=== PATIENT | female | born 1960 | race Caucasian/White ===

== ENCOUNTER 2025-01-18 16:47 | Emergency (ER) | payer MEDICARE, SELFPAY ==
--- OUTSIDE RECORDS SUMMARY | 2025-01-12 13:40 | XMS_ITS | Encounter Summary ---
Author Organization [facility] Address [address] [place] [address] Care Team Providers Care Project Admin Name Role Phone Esther June UTILIZATION SPECIALIST Unavailable Reason for Visit * ReasonCommentsThyroid Nodule Encounter Details DateTypeDepartmentCare Team (Latest Contact Info)Jxhxcrutpis04/22/2025 1:40 PM EDTOffice Visit [facility] [address] [facility] [address] [place] [address] Vicenta Real MD [address] [facility] [address] [place] [address] Nontoxic multinodular goiter (Primary Dx) Social History Tobacco UseTypesPacks/DayYears UsedDateSmoking Tobacco: FormerCigarettes Smokeless Tobacco: Never Tobacco Cessation:Counseling Given: Not Answered Alcohol UseStandard Drinks/WeekCommentsNever0 (1 standard drink = 0.6 oz pure alcohol)caffeine 2-3 cups/dayCommentsUnknownSex and Gender Information ValueDate RecordedSex Assigned at BirthNot on fileLegal QlzCqjhuv93/15/2023 6:36 PM EDTGender IdentityNot on fileSexual OrientationNot on filedocumented as of this encounter Last Filed Vital Signs Vital SignReadingTime TakenCommentsBlood Dfvhvizg601/7610 1:36 PM EDT Utnmm045901/12/2025 1:36 PM EDTTemperature--Respiratory Rate--Oxygen Saturation-- Inhaled Oxygen Concentration--Zzmqwb386 kg (309 lb)01/12/2025 1:36 PM EDTHeight 147.3 cm (4' 10 )01/12/2025 1:36 PM EDTBody Mass Index64.5801/12/2025 1:36 PM EDTdocumented in this encounter Progress Notes * Vicenta Real MD - 01/12/2025 1:40 PM EDT Subjective Patient ID: Maria G Gracia is a 64 y.o. female who presents for Thyroid Nodule Remote h/o RT thyroid lobectomy for benign dz. Recently had chest CT that showed left thyroid nodules. [place] bsequent US shows a left 33mm TR3 nodule and a 39mm TR3 nodule. TFTs normal Review of Systems All other systems reviewed and are negative. Family History[1] Active Ambulatory Problems Diagnosis Date Noted Abdominal hernia 05/09/2023 Abdominal pain in female 07/08/2024 Acute respiratory distress syndrome (HCC) 05/09/2023 Anxiety disorder 06/30/2022 Bilateral tinnitus 01/10/2025 BMI 50.0-59.9, adult ([facility]) 07/08/2024 Change in skin mole 07/08/2024 Chronic eczematous otitis externa of both ears 01/10/[address] ([facility]) 07/08/2024 Contact dermatitis 07/08/2024 Current smoker 05/09/2023 Delirium in remission 07/08/2024 Depressive disorder 05/09/2023 Fistula of intestine 07/08/2024 Fluid level behind tympanic membrane of both ears 07/08/2024 Gout 05/09/2023 Hirsutism 07/08/2024 Hypercholesterolemia 07/02/2022 Hypothyroidism 07/02/2022 Hypertension 01/10/2025 Incisional hernia, without obstruction or gangrene 04/21/2023 Infection of index finger 07/08/2024 Leg swelling 07/08/2024 Migraine headache 05/09/2023 Mixed conductive and sensorineural hearing loss of right ear with restricted hearing of left ear 01/10/2025 Moderate episode of recurrent major depressive disorder (HCC) 01/10/2025 Morbid obesity (CMS-HCC) 07/08/2024 Nausea 07/08/2024 Paroxysmal atrial fibrillation (HCC) 01/10/2025 Schizophrenia (HCC) 01/10/2025 Endometriosis 07/08/2024 Small bowel obstruction (HCC) 07/08/2024 Tooth infection 07/08/2024 Type 2 diabetes mellitus (HCC) 07/08/2024 Vitamin D deficiency 05/09/2023 Resolved Ambulatory Problems Diagnosis Date Noted No Resolved Ambulatory Problems Past Medical History: Diagnosis Date Anxiety and depression Bowel obstruction (HCC) Generalized muscle weakness Gouty arthropathy Headache History of being hospitalized 2014 Obesity BRITNEY (obstructive sleep apnea) Panic attack Polycythemia TIA (transient ischemic attack) Surgical History[2] Allergies[3] Medications Ordered Prior to Encounter[4] Objective Last Recorded Vitals Vitals: 01/12/25 1336 BP: 143/76 Pulse: 70 ENT Physical Exam Constitutional Appearance: patient appears well-developed and well-groomed, obesity noted, Head and Face Appearance: head appears normal and face appears atraumatic; Ear Ear Canals: right ear canal normal; left ear canal normal; Tympanic Membranes: right tympanic membrane normal; left tympanic membrane normal; Nose External Nose: nares patent bilaterally; external nose normal; Internal Nose: septum normal; Oral Cavity/Oropharynx Tongue: normal; Oral mucosa: normal; Hard palate: normal; Soft palate: normal; Tonsils: normal; Neck Neck: neck normal; neck palpation normal; Thyroid: thyroid normal; Respiratory Inspection: breathing unlabored; normal breathing rate; Auscultation: breath sounds are clear; Cardiovascular Inspection: extremities are warm and well perfused; no peripheral edema present; Auscultation: regular rate and rhythm; Assessment/Plan Diagnoses and all orders for this visit: Nontoxic multinodular goiter Pt has 2 fairly large thyroid nodules. I will check an US-guided FNA to assess whether can be followed with periodic US or if removal is needed. [1] Family History Problem Relation Name Age of Onset Heart disease Mother Hypertension Father Heart disease Father Diabetes Maternal Grandmother Diabetes Maternal Grandfather Heart disease Paternal Grandmother Stroke Paternal Grandmother Heart disease Paternal Grandfather [2] Past Surgical History: Procedure Laterality Date ADENOIDECTOMY SECTION, LOW TRANSVERSE x2x CHOLECYSTECTOMY 2014 open choley COLOSTOMY 04/2015 d/t bowel obstruction w gangrene HYSTERECTOMY THYROID LOBECTOMY TONSILLECTOMY TUBAL LIGATION [3] Allergies Allergen Reactions Ciprofloxacin Other Reaction(s): Not available Ciprofloxacin Hcl Lymecycline Unknown Other Reaction(s): Unknown [place] Oil Unknown Penicillin G Sodium Other Reaction(s): Unknown Sulfa Antibiotics [4] Current Outpatient Medications on File Prior to Visit Medication Sig Dispense Refill allopurinol (Zyloprim) 300 MG tablet 1 (one) time each day at the same time ALPRAZolam (Niravam) 0.25 MG disintegrating tablet amitriptyline (Elavil) 10 MG tablet Take 10 mg by mouth at bedtime aspirin 325 MG tablet 1 (one) time each day at the same time atorvastatin (Lipitor) 10 MG tablet 1 (one) time each day at the same time cholecalciferol (Vitamin D-3) 125 MCG (5000 UT) capsule citalopram (CeleXA) 40 MG tablet Take 40 mg by mouth in the morning. escitalopram (Lexapro) 10 MG tablet Take 10 mg by mouth Fluocinolone Acetonide Scalp (fluocinolone) 0.01 % oil Apply to inner ear, up to twice a day for flares, 30 day supply 118.28 mL 11 fluocinonide (Lidex) 0.05 % external solution Apply to affected areas on the scalp, up to twice a day when flared, 30 day supply 60 mL 11 indomethacin (Indocin) 25 MG capsule every 8 (eight) hours metFORMIN (Glucophage) 500 MG tablet Take 1 tablet by mouth Daily ondansetron ODT (Zofran-ODT) 4 MG disintegrating tablet pantoprazole (ProtoNix) 40 MG EC tablet 1 (one) time each day at the same time simvastatin (Zocor) 20 MG tablet Take 20 mg by mouth at bedtime Xanax 0.25 MG tablet Take 0.25 mg by mouth [DISCONTINUED] albuterol (ProAir RespiClick) 90 mcg/act breath-activated inhaler Inhale 2 puffs [DISCONTINUED] albuterol HFA (Ventolin HFA) 90 mcg/act inhaler every 4 (four) hours [DISCONTINUED] dicyclomine (Bentyl) 20 MG tablet No current facility-administered medications on file prior to visit. documented in this encounter Plan of Treatment DateTypeDepartmentCare Team (Latest Contact Info)Xxkmgqllxrq12/03/2025 1:30 PM ESTOffice Visit [facility] [address] [facility] [address] [place] [address] Vicenta Real MD [address] [facility] [address] [place] [address] documented as of this encounter Visit Diagnoses Diagnosis Nontoxic multinodular goiter- Primary documented in this encounter Care Teams Team MemberRelationshipSpecialtyStart DateEnd Date Esther June NP [address] [place] [address] Referring PhysicianFamily Fxlyytrw39/22/25documented as of this encounter
[2025-01-18 16:48] VITALS: BP 168/88; PULSE 76; TEMP 37.1; O2SAT 98; BMI 64.6
--- NOTE | 2025-01-18 17:27 | ECG_ITS ---
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 Measurements Intervals [place] Rate: 67 P: 68 IA: 188 QRS: 112 QRSD: 86 T: 34 QT: 340 QTc: 356 Interpretive Statements [address]-T wave changes 8305 Short QTc interval 9150 abnormal ECG Compared to ECG 09/08/2018 17:12:46 No significant changes Electronically Signed On 01-18-2025 19:00:21 EDT by TABBY SUMMERS M.D.
[2025-01-18 17:31] LABS: Hematocrit 45.5 % (36.0-48.0); Hemoglobin 15.2 g/dL (12.0-16.0); Immature Granulocytes Abs Auto 0.05 10^3/uL (0.00-0.03); Immature Granulocytes Pct Auto 0.4 % (0.0-0.5); Lymphocytes Absolute Auto 4.9 10^3/uL (1.2-3.8); Mean Corpuscular HGB Conc 33.4 g/dL (29.9-35.2); Mean Corpuscular Hemoglobin 29.8 pg (26.7-34.0); Mean Corpuscular Volume 89.2 fL (81.0-99.0); Platelet Count 217 10^3/uL (150-450); Red Blood Count 5.10 10^6/uL (4.20-5.40); White Blood Count 13.2 10^3/uL (4.0-11.0)
--- OUTSIDE RECORDS SUMMARY | 2025-01-18 17:38 | XMS_ITS | Clinical Summary ---
Author Organization [facility] Address [address] [place] [address] Care Team Providers Care Grave Cleaner Name Role Phone Unavailable Primary Care Provider Unavailabl e Allergies Active AllergyReactionsCriticalityNoted DateCommentsCiprofloxacinOther: See Tblvvzvc28/09/2016 Other Reaction(s): Not available WsaayatjxdxEgtsfnv73/15/2013[place] XhupcJccrzpf32/06/2016[place] OilUnknown 07/28/2015PenicillinsHives,Other: See Fgstrqim94/15/2013 Other Reaction(s): Unknown Sulfa (Sulfonamide Antibiotics)Tdnwcjt1607/27/2015 Medications * This document contains information received from the source organization and may not represent a complete record from that organization. MedicationSigDispense QuantityRefillsLast FilledStart DateEnd DateStatus ALPRAZolam (XANAX) 0.25 mg tablet Take 0.25 mg by mouth.07/05/2022ctive escitalopram oxalate (LEXAPRO) 10 mg tablet Take 10 mg by mouth.10/14/2022ctive ondansetron (ZOFRAN) 4 mg tablet Take 4 mg by mouth three times a day as needed.Active simvastatin (ZOCOR) 20 mg tablet Take 20 mg by mouth.Active aspirin 81 mg cap Take 1 tablet by mouth once daily.Active Active Problems ProblemNoted DateDiagnosed DateAbdominal glibso42cute respiratory distress /urrent kyufxc2405/09/2023 05/09/2023 Overview (05/09/2023): Added secondary to documentation in Social History. Comment on above: Added secondary to documentation in Social History. Depressive mlrotyzg28/8844Flkg00Migraine headache Vitamin D htybxzgdgd97Incisional hernia, without obstruction or gffbollr43/29/5829Fctnlcrlkvudetmwlrpn88/11/2023 05/09/20236803Hhopsmpdqammgf98nxiety Social History Tobacco UseTypesPacks/DayYears UsedDateSmoking Tobacco: Every DayCigarettes Passive Smoke Exposure: NeverSmokeless Tobacco: Never Tobacco Cessation:Ready to Q uit: Yes; Counseling Given: Yes Alcohol UseStandard Drinks/WeekCommentsYes0 (1 standard drink = 0.6 oz pure alcohol)1x/weekPHQ-2AnswerDate RecordedPHQ-2 eufib880rea Deprivation IndexAnswerDate RecordedNational Score (1-100), lower number is lower risk61 04/21/2023State Score (1-10), lower number is lower brjr26804/21/2023ata from: https://www.neighborhoodatlas.medicine.[facility].edu/. Last address used for sdnbojuzjo[address]04/21/2023CommentsNoSex and Gender Information ValueDate RecordedSex Assigned at BirthNot on fileLegal JoxNkiawb62/04/2023 9:56 AM ESTGender IdentityNot on fileSexual OrientationNot on file Last Filed Vital Signs Vital SignReadingTime TakenCommentsBlood Yobqyqmv700/7003 11:51 AM EDT Wlddp909706/09/2023 11:51 AM GNKCmxqjxmeumo30.6 ??C (97.8 ??F)06/09/2023 11:51 AM EDTRespiratory Rate--Oxygen Saturation--Inhaled Oxygen Concentration--Weight 143.2 kg (315 lb 11.2 oz)06/09/2023 11:51 AM IGHMtfaqp441.1 cm (4' 11.5 ) 06/09/2023 11:51 AM EDTBody Mass Index62.703 11:51 AM EDT Plan of Treatment Health MaintenanceDue DateLast DoneCommentsAnnual PCP Team Chronic Disease Visit 01/29/1980HIV Abacxxwqu50/07/1980Hepatitis C Jtndnmcbf59/07/1980DTaP,Tdap,Td Vaccine (1 - Tdap)1981Pneumococcal Vaccine: 50+ (1 of 2 - PCV)1981 Cervical Cancer Srirlonah85/07/1983Mammogram Etucsgjvk63/07/2002CT Colonography 2007Cologuard (FIT-DNA)01/28/20071566Gxlhdumeuhx54/07/2007Colorectal Cancer Nbwimqeyp67/07/2007Diabetes Nksywhxgv34/07/2007Fecal Occult Blood2007Lipid Uahcijsjs10/07/3635Eihpccvnzyzxv58/07/2007Shingrix Vaccine (1 of 2)01/29/2012 Medicare Annual Wellness Visit02/21/2017RSV Vaccine (1 - Risk 60-74 years 1-dose series)2Covid-19 Vaccine (1 - 2024- season)2024Influenza Vaccine (#1)2024 Insurance
--- OUTSIDE RECORDS SUMMARY | 2025-01-18 17:38 | XMS_ITS | Clinical Summary ---
Author Organization [facility] Address [id number] [address] [place] [address] Care Team Providers Care Globe Changer Name Role Phone Cami De Guzman MD Primary Care Provider [phone] Allergies Active AllergyReactionsCriticalityNoted DateCommentsCiprofloxacin Hcl07/27/2015 [place] Juice07/28/20155538Ykrhibdjhu91/05/2016Sulfa (Sulfonamide Antibiotics) 07/27/2015 Medications MedicationSigDispense QuantityRefillsLast FilledStart DateEnd DateStatus simvastatin (ZOCOR) 20 mg tablet Take 20 mg by mouth nightly.Active aspirin 325 mg tablet Take 325 mg by mouth daily.Active citalopram (CeleXA) 40 mg tablet Take 40 mg by mouth daily.Active ondansetron (ZOFRAN) 4 mg tablet Take 4 mg by mouth every 8 (eight) hours as needed for nausea or vomiting.Active ALPRAZolam (XANAX) 0.25 mg tablet Take 0.25 mg by mouth 2 (two) times a day as needed for anxiety.Active albuterol sulfate 90 mcg/actuation aerosol powdr breath activated Inhale 2 puffs Every 6 (six) hours while awake.Active amitriptyline (ELAVIL) 10 mg tablet Take 10 mg by mouth nightly. TAKE 2 HOURS BEFORE BEDActive oxyCODONE-acetaminophen (LYNOX) 5-300 mg per tablet Take 1 tablet by mouth every 8 (eight) hours as needed for moderate pain - pain scale 4-6.Active Social History Tobacco UseTypesPacks/DayYears UsedDateSmoking Tobacco: Never AssessedChildcare AnswerDate PrkxzckrDzilnqwnlOhvrclv13/12/2019EmploymentAnswerDate Recorded UpkqidfhseBrvqola38/12/2019Purpose - LifeAnswerDate RecordedPurpose and direction in klkgSeyhqyv74/11/2021CommentsUnknownSex and Gender InformationValueDate RecordedSex Assigned at BirthNot on fileLegal SexFemale 07/25/2015 7:49 PM EDTGender IdentityNot on fileSexual OrientationNot on file Last Filed Vital Signs Vital SignReadingTime TakenCommentsBlood Gdapzqrx494/7607 9:00 AM EDT Nbiyv6048 3:00 PM BBXImpkskuqqwy08.7 ??C (98 ??F)09/22/2015 9:00 AM EDT Respiratory Ddhh5019 9:00 AM EDTOxygen Saturation--Inhaled Oxygen Concentration--Ftcsnm067.4 kg (294 lb)07/27/2015 2:00 PM UUMVqjotm121.5 cm (5' 2 )07/27/2015 2:00 PM EDTBody Mass Index53.7705 2:00 PM EDT Plan of Treatment Not on file Medical Devices Not on file Insurance * Guarantor: Rico Gracia TypeRelation to PatientDate of BirthPhone Billing AddressPersonal/MmoeyuUaxn1960 [address] [address] Care Teams Team MemberRelationshipSpecialtyStart DateEnd Cami De Guzman MD [facility]07/25/15
--- OUTSIDE RECORDS SUMMARY | 2025-01-18 17:38 | XMS_ITS | Clinical Summary ---
Author Organization [facility] Address [address] [facility] [place] [address] Care Team Providers Care Convolute Tube Winder Name Role Phone Lily White MD Unavailable [phone] Source Comments The following information is NOT included in Care Everywhere downloads:Psychiatric notes, ECG results, Cardiac Rehab notes, Pulmonary Function notes, data from SmartForms (includes but not limited toPregnancy data,audiograms, eye exams, pre-surgical evaluation notes, well-child exam data).[facility] Allergies Active AllergyReactionsCriticalityNoted WahcIlzudclqMqsisthqsbbbx36/09/2016 Other Reaction(s): Not available, Other: See Comments Other Reaction(s): Not available Upltezlkuti69/15/2013 Other Reaction(s): Unknown [place] Oil07/28/2015 Other Reaction(s): Unknown, Unknown, Unknown YxnbvqfzmjpHdehq35/17/2025Sulfa Ksthmehsnfc76/05/2016 Other Reaction(s): Unknown Medications MedicationSigDispense QuantityRefillsLast FilledStart DateEnd DateStatus amitriptyline (ELAVIL) 10 MG tablet Take 10 mg by mouth at bedtime.Active aspirin 81 MG tablet Take 81 mg by mouth daily.Active atorvastatin (LIPITOR) 10 MG tablet Take 10 mg by mouth daily.Active citalopram (CeleXA) 10 MG tablet Take 20 mg by mouth daily.Active simvastatin (ZOCOR) 20 MG tablet Take 20 mg by mouth every evening.Active nicotine (NICODERM CQ) 21 mg/24HR patch Place 1 Patch on the skin every 24 hours. 28 Patch 07/09/2024 10:39 AM EDT5Active Albuterol Sulfate 108 (90 Base) MCG/ACT AEPB Inhale 2 Puffs by mouth.Active allopurinol (ZYLOPRIM) 300 MG tablet 1 (one) time each day at the same timeActive ALPRAZolam (NIRAVAM) 0.25 MG dissolvable tablet Take 1 tablet twice a day by oral route.Active Cholecalciferol 125 MCG (5000 UT) CAPS as directed OrallyActive clindamycin (CLEOCIN) 300 MG capsule Take 300 mg by mouth.02/06/2024ctive escitalopram (LEXAPRO) 10 MG tablet Take 10 mg by mouth.tive Fluocinolone Acetonide Body 0.01 % OIL Apply to inner ear, up to twice a day for flares, 30 day gdclgw5703/28/2023ctive fluocinonide (LIDEX) 0.05 % external solution Apply to affected areas on the scalp, up to twice a day when flared, 30 day ypuduu9803/28/2023ctive furosemide (Lasix) 20 MG tablet Take 20 mg by mouth.02/06/2024ctive Hyoscyamine Sulfate 0.[address] 1 tablet every 4 hours by sublingual route.Active pantoprazole (PROTONIX) 40 MG tablet 1 (one) time each day at the same timeActive ondansetron (ZOFRAN-ODT) 4 MG disintegrating tablet Take 1 tablet every 8 hours by oral route.Active metroNIDAZOLE (FLAGYL) 500 MG tablet Take 1 tablet every 8 hours by oral route.Active metFORMIN (GLUCOPHAGE) 500 MG tablet Take 1 tablet every day by oral route.Active indomethacin (INDOCIN) 25 MG capsule every 8 hours.Active Active Problems ProblemNoted DateDiagnosed DateAbdominal pain in jmzqxa1707/08/2024MI 50.0-59.9, adult07/08/2024hange in skin mole07/08/2024olostomy in place07/08/2024ontact /17/3021Dfdnxvuhm59/17/2025Delirium in alyshgvnr17/17/2025 Qpbslmavooyuk89/17/2025Sleep gectgani50/17/2025Fistula of gkgnaylqg09/17/2025 Fluid level behind tympanic membrane of both ears07/08/20243107Iwuudknyc58/17/2025 Infection of index xkdlkm6907/08/2024Leg /17/2025Moderate episode of recurrent major depressive aubocvbo87/17/2025 Overview (07/08/2024): added per 02/20/2023 query response. Morbid ywyfkdz4807/08/20248265Icknyp71/17/2025Tooth iygushgyx12/17/2025Type 2 diabetes hyexdldx12/17/2025 Overview (07/09/2024): Pt claims she does no have. Only required medication temporarily after surgery Small bowel vyrzzbhzbpg84/17/2025ute respiratory distress fyjswmes21/16/2024 Current qmaemz7005/09/2023 Overview (07/08/2024): Added secondary to documentation in Social History. Comment on above: Added secondary to documentation in Social History. Depressive /16/6179Emae20/16/2024Migraine fdvdpncu37/16/2024Vitamin D hvyxpuidwt59/16/2024Incisional hernia, without obstruction or gtumugtn64/29/2024 Qubpheochhefooovzxem36/11/0696Axjiahjracscth22/11/2023nxiety zegqufzo65/09/2023 Social History Tobacco UseTypesPacks/DayYears UsedDateSmoking Tobacco: FormerCigarettes Tobacco Cessation:Counseling Given: Not Answered Humiliation, Afraid, Rape, and Kick questionnaireAnswerDate RecordedFear of Current or Ex-PartnerNot on file07/08/2024Within the last year, have you been humiliated or emotionally abused in other ways by your partner or ex-partner?No 07/08/2024Physically AbusedNot on file07/08/2024Sexually AbusedNot on file 07/08/2024CommentsUnknownSex and Gender InformationValueDate RecordedSex Assigned at BirthNot on fileLegal MwlBrryzn60/16/2025 5:22 PM EDTGender Identity Not on fileSexual OrientationNot on file Last Filed Vital Signs Vital SignReadingTime TakenCommentsBlood Cthxoxvk446/7104 3:08 PM EDT Hsxxg2363 3:08 PM CVEHlxguvtxmjg07.7 ??C (98 ??F)07/09/2024 3:00 PM EDT Respiratory Ebdf889107/09/2024 3:00 PM EDTOxygen Kfugkohxqh69%07/09/2024 3:00 PM EDTInhaled Oxygen Concentration--Ebvkmk234.8 kg (306 lb)07/19/2024 3:02 PM EDT Jugurc791.3 cm (4' 10 )07/19/2024 3:02 PM EDTBody Mass Index63.95007/19/2024 3:02 PM EDT Plan of Treatment Health MaintenanceDue DateLast AshvLwydjcrxFhgzfsazxqg1960Foot Exam 1960TSH103/30/1961Vitamin B12 1960Eye Exam1962Hemoglobin A1C 1960Urine Protein (microalbumin)1962HIV Test1977Hepatitis C Qupbvaig79/07/1980Tdap Wyqlesj3001/29/1980Hepatitis A (HAV) Vaccine (optional start 19+ years)1981Pneumococcal Vaccine(s) (50+ yrs) (1 of 2 - PCV) 1981Pap Smear01/28/19837024Vatarodrdrv68/07/2002CRC Qrjvzfvuz13/07/2007 Cologuard (Stool DNA)2007FIT2007Shingles (RZV) Vaccine (1 of 2) 01/29/2012Hepatitis B (HBV) Vaccine (optional start 60+ years)2022SV vaccine (adult) (1 - Risk 60-74 years 1-dose series)2022Lipid Profile 404/Welcome to Medicare Visit (G0402)5COVID-19 Vaccine (1 - 2024- season)2024Influenza Vaccine (#1)5Basic Metabolic Panel6007/09/2024, 07/08/2024 Procedures Procedure NamePriorityDate/TimeAssociated DiagnosisCommentsBASIC METABOLIC PANEL Wujfion5707/09/2024 4:51 AM EDT from Last 3 Months or Most Recently Relevant to Health Maintenance Results * (ABNORMAL) BASIC METABOLIC PANEL (07/09/2024 4:51 AM EDT)ComponentValueRef RangeTest MethodAnalysis TimePerformed AtPathologist YtbogqtkiSdralel1116 - 109 mg/dL07/09/2024 5:52 AM [facility] EXBNWNGABISrdckt136409 - 145 mmol/L07/09/2024 5:52 AM [facility] PATH[facility] LABORATORYPotassium3.93.5 - 5.0 mmol/L07/09/2024 5:52 AM [facility] PATH[facility] LABORATORYCarbon Eqxaqir3309 - 31 mmol/L07/09/2024 5:52 AM [facility] EUXBDZYROEQsxkbayy62670 - 107 mmol/L 07/09/2024 5:52 AM [facility] PATH[facility] LABORATORYBlood Urea Rbjbgnuw005 - 25 mg/dL07/09/2024 5:52 AM [facility] LABORATORYCreatinine0.50(L)0.60 - 1.20 mg/dL07/09/2024 5:52 AM [facility] LABORATORYCalcium8.3(L)8.6 - 10.3 mg/dL07/09/2024 5:52 AM [facility] PATH[facility] LABORATORYAnion Owc9271 - 20 07/09/2024 5:52 AM [facility] PATH[facility] LABORATORYEstimated GFR (CKD-EPI)106>=60 mL/min/1.17oqv5107/09/2024 5:52 AM [facility] PATHOLOGY LABORATORYComment: 2020 CKD EPI Equation using Creatinine without Race Comment: ??Estimated glomerular filtration rate (eGFR) is calculated without a race coefficient. Values should be interpreted in the context of the patient's full clinical presentation. Reference: 1. Tomas C, Jp M, Nolan DC, et al.. A Unifying Approach for GFR Estimation: Recommendations of the NKF-ASN Task Force on Reassessing the Inclusion of Race in Diagnosing Kidney Disease. AmericanJournal of Kidney Diseases 202;79(2):268-88.e1. 2. N Engl J Med 2021 Vol. 385 Issue 19 Pages 2653-5210 Specimen (Source)Anatomical Location / LateralityCollection Method / Volume Collection TimeReceived TimeBloodBLOOD SPECIMEN / UnknownVenipuncture / Unknown 07/09/2024 4:51 AM EDT/ 5:22 AM EDT Narrative Authorizing ProviderResult TypeResult StatusAriadna Julio HEARN98 [facility] Final ResultPerforming OrganizationAddressCity/State/ZIP CodePhone Number S PATHOLOGY LABORATORY [address] [place] [address] from Last 3 Months or Most Recently Relevant to Health Maintenance Insurance * Guarantor: Maria G Gracia TypeRelation to PatientDate of BirthPhone Billing AddressPersonal/KwbqvgYbdh1960 [address] [place] [address] * Guarantor: Maria G Gracia TypeRelation to PatientDate of BirthPhone Billing AddressPersonal/KmezplEkhl1960 [address] [place] [address] * Guarantor: Maria G Gracia TypeRelation to PatientDate of BirthPhone Billing IqsmsjrVcdyszuyerYzex1960 [address] [place] [address] Advance Directives * Full Code (Latest Code Status on File) Date ActivatedDate InactivatedComments07/08/2024 12:21 AM07/09/2024 10:05 PM QuestionAnswerCommentsDocumentation of decision process for this code status:* Discussed with patient or surrogate.?? This is the code status chosen by the patient/surrogate. Care Teams Team MemberRelationshipSpecialtyStart DateEnd Date Lily White MD [address] [place] [address] PhysicianGeneral Surgery08/28/24
--- OUTSIDE RECORDS SUMMARY | 2025-01-18 17:38 | XMS_ITS | Clinical Summary ---
Author Organization [facility] Address [address] [place] [address] Care Team Providers Care Entry Level Software Developer Name Role Phone Esther June NP Unavailable Allergies Active AllergyReactionsCriticalityNoted IltqUqhtvfnbHrxnatadyynre83/05/2024 Other Reaction(s): Not available Ciprofloxacin Hcl07/27/20155099TneefhmibryRbsehki85/15/2013 Other Reaction(s): Unknown [place] SyyJgztztn13/06/2016Penicillin G Zgnwwx8303/28/2023 Other Reaction(s): Unknown Sulfa Azihlwcptzt99/05/2016 Medications MedicationSigDispense QuantityRefillsLast FilledStart DateEnd DateStatus simvastatin (Zocor) 20 MG tablet Take 20 mg by mouth at bedtimeActive pantoprazole (ProtoNix) 40 MG EC tablet 1 (one) time each day at the same timeActive allopurinol (Zyloprim) 300 MG tablet 1 (one) time each day at the same timeActive ALPRAZolam (Niravam) 0.25 MG disintegrating tablet Active Xanax 0.25 MG tablet Take 0.25 mg by mouth07/05/2022ctive amitriptyline (Elavil) 10 MG tablet Take 10 mg by mouth at bedtimeActive aspirin 325 MG tablet 1 (one) time each day at the same timeActive atorvastatin (Lipitor) 10 MG tablet 1 (one) time each day at the same timeActive cholecalciferol (Vitamin D-3) 125 MCG (5000 UT) capsule Active citalopram (CeleXA) 40 MG tablet Take 40 mg by mouth in the morning.Active escitalopram (Lexapro) 10 MG tablet Take 10 mg by mouth10/14/2022ctive indomethacin (Indocin) 25 MG capsule every 8 (eight) hoursActive metFORMIN (Glucophage) 500 MG tablet Take 1 tablet by mouth DailyActive ondansetron ODT (Zofran-ODT) 4 MG disintegrating tablet Active fluocinonide (Lidex) 0.05 % external solution Indications:Psoriasis vulgarisApply to affected areas on the scalp, up to twice a day when flared, 30 day supply 60 mL 11003/28/2023ctive Fluocinolone Acetonide Scalp (fluocinolone) 0.01 % oil Indications:Psoriasis vulgarisApply to inner ear, up to twice a day for flares, 30 day supply 118.28 mL ctive albuterol (ProAir RespiClick) 90 mcg/act breath-activated inhaler Inhale 2 puffs01/12/2025Discontinued(Therapy completed) albuterol HFA (Ventolin HFA) 90 mcg/act inhaler every 4 (four) hours01/12/2025Discontinued(Therapy completed) dicyclomine (Bentyl) 20 MG tablet Discontinued(Therapy completed) Active Problems ProblemNoted DateDiagnosed DateBilateral ascfgimy23/20/2025hronic eczematous otitis externa of both ears01/10/20257051Fspyjmshrcwp38/20/2025Mixed conductive and sensorineural hearing loss of right ear with restricted hearing of left ear 01/10/2025Moderate episode of recurrent major depressive zfnzpagr00/20/2025 Overview (01/10/2025): added per 02/20/2023 query response. Paroxysmal atrial cqgpapbddfvx13/20/2025 Overview (01/10/2025): Added per outpatient CDI policy based on 08/03/2024 [facility] progress note. Pt also on Eliquis Fhuwbzewwgsod68/20/2025 Overview (01/10/2025): Added per outpatient CDI policy based on 08/03/2024 [facility] progress note Abdominal pain in kodwiu9207/08/2024MI 50.0-59.9, adult07/08/2024hange in skin mole07/08/2024olostomy in place07/08/2024ontact umpiqryfxn14/17/2025Delirium in czubrblqj16/17/2025Fistula of zwzbewzlp01/17/2025Fluid level behind tympanic membrane of both ears07/08/20247589Mcplhtbis54/17/2025Infection of index finger 07/08/2024Leg wjkwyfoq42/17/2025Morbid lzmcrqu5907/08/20240013Tvkfsn13/17/2025 Tsubqpztqkjhz87/17/2025Small bowel /17/2025Tooth infection 07/08/2024Type 2 diabetes /17/2025 Overview (01/10/2025): Pt claims she does no have. Only required medication temporarily after surgery Abdominal cfsksk4305/09/2023cute respiratory distress mimzejol98/16/2024urrent pqallm3305/09/2023 Overview (01/10/2025): Added secondary to documentation in Social History. Comment on above: Added secondary to documentation in Social History. Depressive haqawxwt28/16/8718Kett24/16/2024Migraine lrnmgfeb70/16/2024Vitamin D pgonqadvsa42/16/2024Incisional hernia, without obstruction or /29/2024 Hghnhgkjlhacajxdjmfi83/11/4623Hzhcbbamoaahkm33/11/2023nxiety tmisvzwg52/09/2023 Encounters DateTypeDepartmentCare HgfrMwqzezhlntb94/22/2025 1:40 PM EDTOffice Visit [facility] [place] [facility] [address] [address] [place] [id number] Vicenta Real MD Nontoxic multinodular goiter (Primary Dx)01/12/2025Orders Only [facility] [place] [facility] [address] [place] [address] Esther June, BARBARA 01/12/2025amboo flowsheet [facility] [place] [facility] [address] [place] [phone] Vicenta Real MD 01/12/2025Travelfrom Last 3 Months Family History Medical HistoryRelationNameCommentsHeart diseaseFatherHypertensionFatherDiabetes Maternal GrandfatherDiabetesMaternal GrandmotherHeart diseaseMotherHeart disease Paternal GrandfatherHeart diseasePaternal GrandmotherStrokePaternal Grandmother RelationNameStatusCommentsFatherDeceasedMaternal GrandfatherMaternal Grandmother MotherDeceasedPaternal GrandfatherPaternal Grandmother Social History Tobacco UseTypesPacks/DayYears UsedDateSmoking Tobacco: FormerCigarettes Smokeless Tobacco: Never Tobacco Cessation:Counseling Given: Not Answered Alcohol UseStandard Drinks/WeekCommentsNever0 (1 standard drink = 0.6 oz pure alcohol)caffeine 2-3 cups/dayCommentsUnknownSex and Gender Information ValueDate RecordedSex Assigned at BirthNot on fileLegal IocWjmqqp73/15/2023 6:36 PM EDTGender IdentityNot on fileSexual OrientationNot on file Last Filed Vital Signs Vital SignReadingTime TakenCommentsBlood Rnvkmssa433/7601/12/2025 1:36 PM EDT Jdxwn826201/12/2025 1:36 PM EDTTemperature--Respiratory Rate--Oxygen Saturation-- Inhaled Oxygen Concentration--Ntapbn003 kg (309 lb)01/12/2025 1:36 PM EDTHeight 147.3 cm (4' 10 )01/12/2025 1:36 PM EDTBody Mass Index64.5801/12/2025 1:36 PM EDT Plan of Treatment DateTypeDepartmentCare Team (Latest Contact Info)Zpuegibguuh26/03/2025 1:30 PM ESTOffice Visit [facility] [place] [facility] [address] [facility] [address] [place] [address] Vicenta Real MD [address] [facility] [address] [place] [address] Procedures Procedure NamePriorityDate/TimeAssociated DiagnosisCommentsUS THYROIDRoutine 12/22/2024 3:16 PM EDTfrom Last 3 Months Results * US thyroid (12/22/2024 3:16 PM EDT)Anatomical RegionLateralityModalityHead, NeckUltrasound Narrative Authorizing ProviderResult TypeResult StatusJogiuseppe June NPIMG US PROCEDURESFinal Result from Last 3 Months Insurance Care Teams Team MemberRelationshipSpecialtyStart DateEnd Date Esther June NP [address] [place] [address] Referring PhysicianFamily Uupdtzep93/22/25
--- OUTSIDE RECORDS SUMMARY | 2025-01-18 17:38 | XMS_ITS | Encounter Summary ---
Author Organization [facility] Address [address] [place] [address] Care Team Providers Care Tumbling Instructor Name Role Phone Esther June TANK FARM ATTENDANT Unavailable Encounter Details DateTypeDepartmentCare Team (Latest Contact Info)Kqffzqqfipl22/22/2025Travel Social History Tobacco UseTypesPacks/DayYears UsedDateSmoking Tobacco: FormerCigarettes Smokeless Tobacco: NeverAlcohol UseStandard Drinks/WeekCommentsNever0 (1 standard drink = 0.6 oz pure alcohol)caffeine 2-3 cups/dayComments UnknownSex and Gender InformationValueDate RecordedSex Assigned at BirthNot on fileLegal YaoPjvoky64/15/2023 6:36 PM EDTGender IdentityNot on fileSexual OrientationNot on filedocumented as of this encounter Plan of Treatment DateTypeDepartmentCare Team (Latest Contact Info)Mwqimkgynmi52/03/2025 1:30 PM ESTOffice Visit [facility] [place] [facility] [address] [facility] [address] [place] [address] Vicenta Real MD [address] [facility] [address] [place], [place] [id number] documented as of this encounter Visit Diagnoses Not on filedocumented in this encounter Care Teams Team MemberRelationshipSpecialtyStart DateEnd Date Esther June NP [address] [place] [address] Referring PhysicianFamily Xjirdrpv07/22/25documented as of this encounter
--- OUTSIDE RECORDS SUMMARY | 2025-01-18 17:38 | XMS_ITS | Encounter Summary ---
Author Organization [facility] Address [address] [place] [address] Care Team Providers Care Allocations Clerk Name Role Phone Esther June DIRECT SALES PROFESSIONAL Unavailable Encounter Details DateTypeDepartmentCare Team (Latest Contact Info)Ljxcobchdhu96/22/2025Orders Only [facility] [address] [facility] [address] [place] [address] Esther June NP [address] [place] [address] Social History Tobacco UseTypesPacks/DayYears UsedDateSmoking Tobacco: FormerCigarettes Smokeless Tobacco: NeverAlcohol UseStandard Drinks/WeekCommentsNever0 (1 standard drink = 0.6 oz pure alcohol)caffeine 2-3 cups/dayComments UnknownSex and Gender InformationValueDate RecordedSex Assigned at BirthNot on fileLegal AqmPlrfwj64/15/2023 6:36 PM EDTGender IdentityNot on fileSexual OrientationNot on filedocumented as of this encounter Plan of Treatment DateTypeDepartmentCare Team (Latest Contact Info)Oqstuhdwqgm03/03/2025 1:30 PM ESTOffice Visit [facility] [address] [place] [address] [place] [address] Vicenta Real MD [address] [place] [address] documented as of this encounter Procedures Procedure NamePriorityDate/TimeAssociated DiagnosisCommentsUS THYROIDRoutine 12/22/2024 3:16 PM EDTdocumented in this encounter Results * US thyroid (12/22/2024 3:16 PM EDT)Anatomical RegionLateralityModalityHead, NeckUltrasound Narrative Authorizing ProviderResult TypeResult StatusJogiuseppe June NPIMG US PROCEDURESFinal Result documented in this encounter Visit Diagnoses Not on filedocumented in this encounter Care Teams Team MemberRelationshipSpecialtyStart DateEnd Date Esther June NP [address] [place] [address] Referring PhysicianFamily Wpaqrmjw15/22/25documented as of this encounter
--- OUTSIDE RECORDS SUMMARY | 2025-01-18 17:38 | XMS_ITS | Encounter Summary ---
Author Organization [facility] Address [address] [place] [address] Care Team Providers Care Hospice Educator Name Role Phone Slade, Esther MEDICAL STAFF ASSISTANT Unavailable Encounter Details DateTypeDepartmentCare Team (Latest Contact Info)Hlgpkowstwb93/22/2025amboo flowsheet [facility] [place] [facility] [address] [address] [place] [address] Vicenta Real MD [address] [place] [address] Social History Tobacco UseTypesPacks/DayYears UsedDateSmoking Tobacco: FormerCigarettes Smokeless Tobacco: NeverAlcohol UseStandard Drinks/WeekCommentsNever0 (1 standard drink = 0.6 oz pure alcohol)caffeine 2-3 cups/dayComments UnknownSex and Gender InformationValueDate RecordedSex Assigned at BirthNot on fileLegal HkoJdjpmd17/15/2023 6:36 PM EDTGender IdentityNot on fileSexual OrientationNot on filedocumented as of this encounter Plan of Treatment DateTypeDepartmentCare Team (Latest Contact Info)Ulrrewbkeax39/03/2025 1:30 PM ESTOffice Visit [facility] [place] [facility] [address] [place] [address] [place] [address] Vicenta Rael MD [address] [place], [place] [phone] documented as of this encounter Visit Diagnoses Not on filedocumented in this encounter Care Teams Team MemberRelationshipSpecialtyStart DateEnd Date Esther June NP [address] [place] [address] Referring PhysicianFamily Mppgarux00/22/25documented as of this encounter
--- NOTE | 2025-01-18 17:48 | ED.GENADUL1 ---
HPI HPI - General Adult General Chief complaint: Psychiatric Symptoms Stated complaint: SUICIDAL Time Seen by Provider: 01/18/25 17:02 Source: patient Mode of arrival: ambulance Limitations: no limitations History of Present Illness HPI narrative: Patient is a 64-year-old female that presents to the emergency department via EMS after her PCPs office had called them to pick patient up after she was expressing suicidal ideations. She denies any homicidal ideations. She has no plan for suicide. She does have a history of depression and prior thoughts of suicide by cutting her wrists in 2016 after she had surgery and an ostomy bag placed. She never sought help or treatment for this but used her family for emotional support. She has a very large right lower quadrant hernia next to the ostomy bag that she reports causes her distress and makes her on more the to live. Patient has a past medical history of hypertension, thyroid issues, and GI surgery and issues. She states she is very overwhelmed with taking care of her medical issues and does not know what medication she needs to be on. She does live at home with her . She states her grand daughter helps set up some of her medical appointments and transports her. She does ambulate with a cane. She denies any medical issues at this point and just wants to get help for her suicidal ideations. Related Data Home Medications ?Medication ?Instructions ?Recorded ?Confirmed metoprolol succinate 100 mg mg PO 01/18/25 tablet,extended release 24 hr Allergies Allergy/AdvReac Type Severity Reaction Status Date / Time Penicillins Allergy Unknown Verified 01/18/25 16:58 Opioid HPI Opioid Management Most Recent Opioid Data: Ur Phencyclidine Scrn, (NEGATIVE) Negative Today, 19:12 Review of Systems ROS Status of ROS 10 or more systems reviewed and unremarkable except as noted in history and below PFSH PFSH Social History Little interest or pleasure in doing things: more than half the days Feeling down, depressed, or hopeless: more than half the days Exam Narrative Exam Narrative: General: No distress, age-appropriate Skin: Warm, dry, no pallor. No rash. Head: Normocephalic, atraumatic. Neck: Supple, non-tender. Eye: Pupils are equal, round and EOMI. No scleral icterus. Ears, Nose, Mouth, and Throat: No nasal mucosal hypertrophy. Oral mucosa is moist, no posterior oropharynx erythema, uvula is mid-line Cardiovascular: Regular Rate and Rhythm without murmur, gallop or rub. Respiratory: No accessory muscle use or respiratory distress. Lungs are clear to auscultation, no wheezing, rales or rhonchi Chest Wall: no tenderness Back: No midline thoracic or lumbar vertebral tenderness. Musculoskeletal: Full ROM of all extremities, no calf or popliteal tenderness GI: Abdomen is soft, large right lower quadrant hernia lateral to ostomy bag, non tender to palpation. No masses appreciated. No rebound, guarding, or rigidity noted. Neurological: A&O x4. No cranial nerve dysfunction observed. No truncal ataxia. Moves all extremities. Sensation intact. Psychiatric: Cooperative and interactive. Normal mood and affect. Constitutional Vital Signs, click to edit/add: Last Vital Signs Temp 98.7 F 01/18/25 16:48 Pulse 76 01/18/25 16:48 Resp 20 01/18/25 16:48 BP 168/88 H 01/18/25 16:48 Pulse Ox 98 01/18/25 16:48 Course Vital Signs Vital signs: Vital Signs Temperature 98.7 F 01/18/25 16:48 Pulse Rate 76 01/18/25 16:48 Respiratory Rate 20 01/18/25 16:48 Blood Pressure 168/88 H 01/18/25 16:48 Pulse Oximetry 98 01/18/25 16:48 Temperature 98.7 F 01/18/25 16:48 Pulse Rate 76 01/18/25 16:48 Respiratory Rate 20 01/18/25 16:48 Blood Pressure 168/88 H 01/18/25 16:48 Pulse Oximetry 98 01/18/25 16:48 Medical Decision Making [facility] Narrative Medical decision making narrative: This is a 64-year-old female that presented via EMS to the ED with suicidal ideations. No plan for suicide. No homicidal ideations or plan. She has a history of depression and previous thoughts of suicide after her ostomy and bag was placed. She has a very large hernia next to this that causes her distress. She feels overwhelmed with taking care of her medical issues. She states she needs a plan of care . EKG, CBC, CMP, ethanol, UDS, and UA ordered. [facility] with [place] contacted and speaking with patient on the phone. [facility] presented in person to evaluate patient. Dr. Campbell will accept patient to [facility]. CBC unremarkable, CMP unremarkable, ethanol negative, UDS negative, UA negative for infection. Patient remained medically stable while in the emergency department. Patient was discharged in good condition to [facility] for further evaluation and management of her major depressive episode. Differential Diagnosis Differential Diagnosis: Depression, anxiety, suicidal ideation Lab Data Lab results reviewed: Yes I reviewed the patient's lab results Labs: Lab Results 01/18/25 01/18/25 Range/Units 16:50 19:12 WBC 13.2 H (4.0-11.0) 10^3/uL RBC 5.10 (4.20-5.40) 10^6/uL Hgb 15.2 (12.0-16.0) g/dL Hct 45.5 (36.0-48.0) % MCV 89.2 (81.0-99.0) fL MCH 29.8 (26.7-34.0) pg MCHC 33.4 (29.9-35.2) g/dL RDW 13.0 (11.0-15.0) % Plt Count 217 (150-450) 10^3/uL MPV 9.9 (9.5-13.5) fL Neut % (Auto) 50.8 (43.0-75.0) % Lymph % (Auto) 36.8 (20.5-60.0) % [place] % (Auto) 5.4 (1.7-12.0) % Eos % (Auto) 5.8 (0.9-7.0) % Baso % (Auto) 0.8 (0.2-2.0) % Neut # (Auto) 6.7 H (1.4-6.5) 10^3/uL Lymph # (Auto) 4.9 H (1.2-3.8) 10^3/uL [place] # (Auto) 0.7 (0.3-0.8) 10^3/uL Eos # (Auto) 0.8 H (0.0-0.7) 10^3/uL Baso # (Auto) 0.1 (0.0-0.1) 10^3/uL Abs Immat Gran (auto) 0.05 H (0.00-0.03) 10^3/uL Imm/Tot Granulo (auto) 0.4 (0.0-0.5) % Sodium 139 (136-145) mmol/L Potassium 3.9 (3.5-5.1) mmol/L Chloride 104 (98-107) mmol/L Carbon Dioxide 28.2 (21.0-32.0) mmol/L Anion Gap 10.7 BUN 4.0 L (7.0-18.0) mg/dL Creatinine 0.86 (0.55-1.02) mg/dL Est GFR ( Amer) >60 (>=60 mL/min/1.73m^2) Est GFR (Non-Af Amer) >60 (>=60 mL/min/1.73m^2) BUN/Creatinine Ratio 4.7 Glucose 162 H (74-106) mg/dL Calcium 9.2 (8.5-10.1) mg/dL Total Bilirubin 0.9 (0.2-1.0) mg/dL AST 18 (15-37) U/L ALT 20 (14-59) U/L Alkaline Phosphatase 93 (46-116) U/L Total Protein 7.4 (6.4-8.2) g/dL Albumin 3.5 (3.4-5.0) g/dL Globulin 3.9 g/dL Albumin/Globulin Ratio 0.9 Urine Color Lt. yellow (YELLOW) Urine Clarity Clear (CLEAR) Urine pH 5.5 (5.0-9.0) Ur Specific Amonate 1.015 (1.005-1.025) Urine Protein Negative (NEG/TRACE) mg/dL Urine Glucose (UA) Negative (NEGATIVE) mg/dL Urine Ketones Negative (NEGATIVE) mg/dL Urine Occult Blood Negative (NEGATIVE) Urine Nitrite Negative (NEGATIVE) Urine Bilirubin Negative (NEGATIVE) Urine Urobilinogen 0.2 (0.2-1.0) EU/dL Ur Leukocyte Esterase Negative (NEGATIVE) Urine RBC None seen (0-2) #/HPF Urine WBC 0-2 A (NONE SEEN) #/HPF Ur Squamous Epith Cells Few A (NONE/RARE) #/LPF Urine Crystals None seen (None Seen) #/HPF Urine Bacteria Small A (NONE SEEN) #/HPF Urine Casts None seen (NONE SEEN) #/LPF Urine Mucus None seen (NONE SEEN) Ur Culture Indicated? [facility] Urine Opiates Screen Negative (NEGATIVE) Ur Buprenorphine Scrn Negative (NEGATIVE) Ur Oxycodone Screen Negative (NEGATIVE) Urine Methadone Screen Negative (NEGATIVE) Ur Barbiturates Screen Negative (NEGATIVE) U Tricyclic Antidepress Negative (NEGATIVE) Ur Phencyclidine Scrn Negative (NEGATIVE) Ur Amphetamines Screen Negative (NEGATIVE) U Methamphetamines Scrn Negative (NEGATIVE) U Benzodiazepines Scrn Negative (NEGATIVE) Urine Cocaine Screen Negative (NEGATIVE) U Cannabinoids Screen Negative (NEGATIVE) Ethanol Quant <3 mg/dL ECG Data Attestation: ?I have reviewed the pertinent ECG results. Discharge Plan Discharge Chief Complaint: Psychiatric Symptoms Clinical Impression: Suicidal ideation, Depression Patient Disposition: [facility] Time of Disposition Decision: 20:57 Discharge Location: [facility] Discharge location: [facility] Condition: Good Mode of Transportation: EMS
[2025-01-18 18:06] LABS: Alanine Aminotransferase 20 U/L (14-59); Albumin Globulin Ratio 0.9; Albumin Level 3.5 g/dL (3.4-5.0); Alkaline Phosphatase 93 U/L (46-116); Anion Gap 10.7; Aspartate Amino Transferase 18 U/L (15-37); Blood Urea Nitrogen 4.0 mg/dL (7.0-18.0); Calcium 9.2 mg/dL (8.5-10.1); Carbon Dioxide 28.2 mmol/L (21.0-32.0); Chloride 104 mmol/L (98-107); Estimated GFR (African America >60 (>=60 mL/min/1.73m^2); Estimated GFR (Non-African Ame >60 (>=60 mL/min/1.73m^2); Globulin 3.9 g/dL; Glucose 162 mg/dL (74-106); Potassium 3.9 mmol/L (3.5-5.1); Sodium 139 mmol/L (136-145); Total Protein 7.4 g/dL (6.4-8.2)
--- NOTE | 2025-01-18 19:06 | PC.NURSE ---
Up to BR for urine collection.
[2025-01-18 19:23] LABS: Glucose Urine UA NEGATIVE (NEGATIVE)
[2025-01-18 19:33] LABS: Cast Seen? NONE SEEN #/LPF (NONE SEEN); Crystals Seen? None Seen #/HPF (None Seen); Urine Culture Indicated YES-FRMC
[2025-01-18 19:34] LABS: Cannabinoid Screen Urine NEGATIVE (NEGATIVE); Methamphetamines Screen Urine NEGATIVE (NEGATIVE); Tricyclic Antidepressant Urine NEGATIVE (NEGATIVE)
[2025-01-18 21:23] VITALS: BP 162/80; PULSE 80; O2SAT 98
--- NOTE | 2025-01-18 21:42 | PC.NURSE ---
Pt brought back in per transfer car operator drier--she was unable to fit in the seat. She will be picked up per EMS truck in approximately 30 minutes.
== END 2025-01-18 21:00 ==
PROVIDERS: Physician Assistant; Emergency Provider Emergency Medicine; PCP Nurse Practitioner
DX: R45.851 Suicidal ideations (principal); F32.A Depression, unspecified; Z93.3 Colostomy status; Z91.51 Personal history of suicidal behavior; I10 Essential (primary) hypertension; K46.9 Unspecified abdominal hernia without obstruction or gangrene; R82.998 Other abnormal findings in urine; Z79.899 Other long term (current) drug therapy
CPT/HCPCS: 36415; 80053; 80307; 80320; 81001; 85025; 87086; 93005; 99285